=== PATIENT | male | born 1995 | race Caucasian/White ===

== ENCOUNTER 2022-11-27 22:38 | Emergency (ER) | payer OTHER ==
--- NOTE | 2022-11-27 23:00 | NUR ---
Patient was just called at this time to be triaged due to short staffing in the ER (only 2 nurse schedule in the ER), but patient was not present in the waiting room or outside of ER.
--- NOTE | 2022-11-28 00:01 | NUR ---
Patient was called to be triaged but was not present in the waiting room or outside of ER. Patient was not triaged or seen by ERMD.
== END 2022-11-28 00:01 | disposition left against medical advice (07) ==
LOC: ER 22:38
DX: Z53.21 Procedure and treatment not carried out due to patient leaving prior to being seen by health care provider (principal)